=== PATIENT | female | born 1975 | race Caucasian/White ===

== ENCOUNTER 2017-03-13 16:54 | Emergency (ER) | payer BC, OTHER ==
[~2017-03-13] VITALS: Ht 162.6 cm; Wt 72.6 kg
[~2017-03-13 16:54] MED LIST changes: -METH-543 PO
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
[2017-03-13] MEDS ORDERED: METHOCARBAMOL 500 MG TAB PO ONE ×2 (17:15→18:30)
[2017-03-13] MEDS ORDERED: IBUPROFEN 600 MG TAB PO ONE (17:15)
[2017-03-13] MEDS ORDERED: METH-543 PO (18:17)
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
[2017-03-13 18:28] VITALS: BP 121/74
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
== END 2017-03-13 18:43 | disposition home or self-care (01) ==
LOC: ER 17:08
DX: S16.1XXA Strain of muscle, fascia and tendon at neck level, initial encounter (principal); M54.5 Low back pain; V89.2XXA Person injured in unspecified motor-vehicle accident, traffic, initial encounter; F17.210 Nicotine dependence, cigarettes, uncomplicated
CPT/HCPCS: 72100; 72125; 99283

== ENCOUNTER → 2017-03-13 | Outpatient (CLI) | payer OTHER, BC ==
[~2017-03-13] MED LIST: ALPR-448 PO; CEPH500T7 PO; FLUT16SP19 NS; KET10 PO; METH-543 PO; RIZA10TA15 PO; SERT-1 PO; SERT20OR6 PO
== END ==
LOC: AMB 16:27
PROVIDERS: ATTEND Nurse Practitioner
DX: M54.2 Cervicalgia (principal); M54.9 Dorsalgia, unspecified; V49.40XA Driver injured in collision with unspecified motor vehicles in traffic accident, initial encounter; Y92.414 Local residential or business street as the place of occurrence of the external cause
CPT/HCPCS: A0425; A0427

== ENCOUNTER → 2017-11-16 | Outpatient (REF) | payer BC ==
[~2017-11-16] MED LIST changes: +METH-543 PO; +SERT-173 PO; -SERT20OR6 PO
[2017-11-16 11:57] LABS: PLATELET COUNT, AUTOMATED 270 K/uL (150-450)
== END ==
PROVIDERS: ATTEND Nurse Practitioner Family
DX: R10.9 Unspecified abdominal pain (principal)
CPT/HCPCS: 82040; 82150; 82247; 82310; 82374; 82435; 82565; 82947; 83690; 84075; 84132; 84155; 84295; 84450; 84460; 84520; 85025; 86592; 86703

== ENCOUNTER → 2018-04-03 | Outpatient (CLI) | payer BC ==
--- NOTE | 2018-04-04 08:34 | RADIOLOGY IMAGING REPORT ---
FACILITY: [facility] PATIENT NAME: FATMATA CUENCA : [id number] MR: [id number] V: [id number] EXAM DATE: ORDERING PHYSICIAN: SANDRINE KHALIL TECHNOLOGIST: Genesis Escalante PROCEDURE:BILATERAL DIGITAL SCREENING MAMMOGRAM WITH CAD ASSISTED INTERPRETATION & 3D TOMOSYNTHESIS COMPARISON:Prior mammograms dated 09/25/15, 08/06/14, 06/23/12 INDICATIONS:SCREENING FINDINGS: There are bilateral subpectal breast implants in place. There is no evidence of implant rupture or leakage. Scattered fibroglandular densities are seen throughout the breasts. The parenchymal pattern has remained stable allowing for difference in mammographic technique & patient positioning. DIAGNOSTIC CATEGORY 2--BENIGN FINDING. RECOMMENDATIONS: ROUTINE MAMMOGRAM AND CLINICAL EVALUATION. IMPRESSION: BIRADS 2: Benign finding. No significant abnormality is seen. Dictated by: Brianna Manuel M.D. on 04/03/2018 at 16:48 Transcribed by: LEESA on 04/04/2018 at 7:06 Approved by: Brianna Manuel M.D. on 04/04/2018 at 8:33 [facility]
== END ==
LOC: MAMO 00:44
PROVIDERS: ATTEND Family Medicine
DX: Z12.31 Encounter for screening mammogram for malignant neoplasm of breast (principal); Z98.82 Breast implant status
CPT/HCPCS: 77063; 77067